=== PATIENT | male | born 1995 | race Caucasian/White ===

== ENCOUNTER 2018-07-03 23:01 | Emergency (ER) | payer MEDICAID ==
[~2018-07-03] VITALS: Ht 182.9 cm; Wt 76.2 kg
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
--- NOTE | 2018-07-03 23:50 | NUR ---
RADIO AT BEDSIDE.
[2018-07-04 01:11] VITALS: BP 138/76
== END 2018-07-04 01:12 | disposition home or self-care (01) ==
LOC: ER 23:16
DX: S40.212A Abrasion of left shoulder, initial encounter (principal); Z96.612 Presence of left artificial shoulder joint; V29.49XA Motorcycle driver injured in collision with other motor vehicles in traffic accident, initial encounter; Y93.89 Activity, other specified; Y92.410 Unspecified street and highway as the place of occurrence of the external cause; Y99.8 Other external cause status
CPT/HCPCS: 71045-TC; 73030-TC; A4606; Z7610